=== PATIENT | female | born 1930 | race Caucasian/White ===

== ENCOUNTER → 2017-07-09 | Outpatient (CLI) | payer OTHER ==
[~2017-07-09] MED LIST: AUGMENTIN 875875 MG; BISACODYL SUPP10 MG RECTAL; DOXYCYCLINE 10100 M2 PO; GABAPENTIN 100100 MG PO; HYDROCODONE-AP1 EAC6 PO; LEVOTHYROXIN0.125 M1 PO; MEGA BIOTIN10000 MCG PO; SYNTHROID75 MCG PO; TOPROL XL25 MG PO; ULTRAM 50MG TAB50 MG PO; VASOTEC10 MG PO; VITAMIN D2000 UNIT PO; VOLTAREN GEL 1100 G2 TOP; ZOFRAN ODT4 MG PO; ZOFRAN4 MG PO
== END ==
LOC: M.RAD 12:45
DX: J84.10 Pulmonary fibrosis, unspecified (principal); M41.85 Other forms of scoliosis, thoracolumbar region; W19.XXXA Unspecified fall, initial encounter

== ENCOUNTER 2017-09-14 19:09 | Inpatient (IN) | payer OTHER ==
[~2017-09-14] VITALS: Ht 160 cm; Wt 64.4 kg
[~2017-09-14 19:09] MED LIST changes: -SYNTHROID75 MCG PO
[2017-09-14 19:15] VITALS: BP 172/72
[2017-09-14 20:03] LABS: ABSOLUTE BASOPHILS 0.1 thou/uL (0.0-0.2); ABSOLUTE EOSINOPHILS 0.5 thou/uL (0.0-0.7); ABSOLUTE LYMPHOCYTES 2.5 thou/uL (0.8-5.3); ABSOLUTE MONOCYTES 1.3 thou/uL (0.0-1.2); BASOPHILS 0.5 %; EOSINOPHILS 4.6 %; HEMOGLOBIN 12.2 gm/dL (12.0-15.0); LYMPHOCYTES 24.3 %; MCH 31.2 pg (26.0-34.0); MCHC 33.8 g/dL (28.0-37.0); MCV 92.4 fL (80.0-100.0); MONOCYTES 12.9 %; MPV 8.8 fl. (7.2-11.1); NUCLEATED RBCS 0 /100WBC; PLATELET COUNT* 203 thou/uL (150-400); POLYS 57.7 %; RBC 3.89 mil/uL (4.20-5.00); RDW-CV 13.5 % (10.5-14.5); WBC 10.4 thou/uL (4.0-11.0)
[2017-09-14 20:19] LABS: CALCIUM 9.4 mg/dL (8.5-10.1); CREATININE 1.7 mg/dL (0.6-1.3); POTASSIUM 5.3 mmol/L (3.5-5.1)
[2017-09-14 20:20] LABS: ALBUMIN 3.7 g/dL (3.4-5.0); TOTAL BILIRUBIN 0.2 mg/dL (<0.1-1.0); TOTAL PROTEIN 7.6 g/dL (6.4-8.2)
[2017-09-14 22:17] VITALS: BP 134/77
[2017-09-14 22:45] VITALS: BP 147/70
--- NOTE | 2017-09-15 06:24 | NUR ---
Admission at 2223. She has L forefinger cellulitis. She had a surgery on her L wrist when she was in her teens or 20's. She said that she has been getting blisters on that L hand and having numbness in both hands. The blisters came up and one got infected and has been hurting, L forefinger was red,swollen and warm. She had red streaks going up her right arm. She did recieve Vanco in E.D. and has since the redness up her arm has improved. She's up independently in room. She doesn't want to have any surgery. She said she wants second opinions. Dr [facility] ([facility])to be consulted because she wants a surgeon who has worked on hands. Resident Dr Barahona notified this am but will call answering service this am.
[2017-09-15 08:12] LABS: ABSOLUTE BASOPHILS 0.1 thou/uL (0.0-0.2); ABSOLUTE EOSINOPHILS 0.4 thou/uL (0.0-0.7); ABSOLUTE LYMPHOCYTES 2.4 thou/uL (0.8-5.3); ABSOLUTE MONOCYTES 0.8 thou/uL (0.0-1.2); ABSOLUTE NEUTROPHILS 3.4 thou/uL (1.6-8.1); BASOPHILS 1.2 %; EOSINOPHILS 5.3 %; HEMATOCRIT 36.3 % (37.0-47.0); HEMOGLOBIN 12.4 gm/dL (12.0-15.0); LYMPHOCYTES 34.3 %; MCH 31.2 pg (26.0-34.0); MCHC 34.2 g/dL (28.0-37.0); MCV 91.1 fL (80.0-100.0); MPV 8.8 fl. (7.2-11.1); NUCLEATED RBCS 0 /100WBC; PLATELET COUNT* 203 thou/uL (150-400); POLYS 48.2 %; RBC 3.98 mil/uL (4.20-5.00); RDW-CV 13.1 % (10.5-14.5); WBC 7.1 thou/uL (4.0-11.0)
[2017-09-15 08:24] LABS: CALCIUM 9.3 mg/dL (8.5-10.1); CREATININE 1.4 mg/dL (0.6-1.3); POTASSIUM 4.6 mmol/L (3.5-5.1)
[2017-09-15 08:50] VITALS: BP 120/78
[2017-09-15 09:52] VITALS: BP 120/78
--- NOTE | 2017-09-15 11:06 | NUR ---
CM ASSESSMENT: VISITED WITH PT IN ROOM. PT DENIES NEED FOR CM. DENIES NEED FOR DME. PT LIVES ALONE AND DRIVES. SHE GOES TO THE GYM A FEW DAYS A WEEK. DENIES NEED FOR HH
--- NOTE | 2017-09-15 13:30 | NUR ---
PATIENT LEFT AMA AT 1330. ALERT AND ORIENTED X4. UP AD RMOA IN ROOM. IV DC'D. PATIENT STATES THAT SHE IS WASTING HER TIME SITTING IN THE HOSPITAL WAITING FOR THE INFECTIOUS DISEASE DR. FOSTER MEDRANO. STATES SHE IS GOING TO GO TO HER PRIMARY CARE TO GET ANTIBITOTICS. RISKS HAVE BEEN EXPLAINED TO PATIENT AND PROVIDER HAS BEEN NOTIFIED. VSS ON ROOM AIR. HOURLY ROUNDS HAVE BEEN MAINTAINED THROUGHOUT SHIFT.
== END 2017-09-15 13:30 | disposition left against medical advice (07) | DRG 602 ==
LOC: M.ERS 19:09 → M.TBA-ER 20:30 → M.ORTHSURG 20:30
PROVIDERS: Emergency Medicine; ADMIT Internal Medicine
DX: L03.114 Cellulitis of left upper limb (principal); N17.0 Acute kidney failure with tubular necrosis; K21.9 Gastro-esophageal reflux disease without esophagitis; I10 Essential (primary) hypertension; E03.9 Hypothyroidism, unspecified; N18.3 Chronic kidney disease, stage 3 (moderate); Z53.21 Procedure and treatment not carried out due to patient leaving prior to being seen by health care provider; L53.9 Erythematous condition, unspecified; Z79.899 Other long term (current) drug therapy; Z90.49 Acquired absence of other specified parts of digestive tract; Z88.6 Allergy status to analgesic agent; Z88.8 Allergy status to other drugs, medicaments and biological substances

== ENCOUNTER 2017-09-23 12:26 | Inpatient (IN) | payer OTHER ==
[~2017-09-23] VITALS: Ht 162.6 cm; Wt 64.0 kg
[2017-09-23] VITALS (7 sets, daily range): BP systolic 130–187; BP diastolic 57–80
[2017-09-23] MEDS ORDERED: SYNTHROID75 MCG PO (12:40)
[2017-09-23 13:36] LABS: ABSOLUTE BASOPHILS 0.1 thou/uL (0.0-0.2); ABSOLUTE EOSINOPHILS 0.4 thou/uL (0.0-0.7); ABSOLUTE MONOCYTES 0.6 thou/uL (0.0-1.2); BASOPHILS 0.9 %; EOSINOPHILS 5.8 %; HEMATOCRIT 39.8 % (37.0-47.0); HEMOGLOBIN 13.6 gm/dL (12.0-15.0); LYMPHOCYTES 42.3 %; MCH 31.8 pg (26.0-34.0); MCHC 34.1 g/dL (28.0-37.0); MCV 93.4 fL (80.0-100.0); MONOCYTES 9.2 %; MPV 8.8 fl. (7.2-11.1); NUCLEATED RBCS 0 /100WBC; PLATELET COUNT* 256 thou/uL (150-400); POLYS 41.8 %; RBC 4.26 mil/uL (4.20-5.00); RDW-CV 13.3 % (10.5-14.5); WBC 7.1 thou/uL (4.0-11.0)
[2017-09-23 13:40] LABS: ANION GAP 11 mmol/L (7-16); BUN 42 mg/dL (7-18); CHLORIDE 104 mmol/L (98-107); CO2 20 mmol/L (21-32); CREATININE 2.6 mg/dL (0.6-1.3); GLUCOSE 111 mg/dL (70-99); SODIUM 135 mmol/L (136-145)
[2017-09-23 13:42] LABS: POTASSIUM 7.4 mmol/L (3.5-5.1)
[2017-09-23 13:53] LABS: ALBUMIN 4.2 g/dL (3.4-5.0); ALKALINE PHOSPHATASE 58 U/L (46-116); NT-PRO BRAIN NAT PEPTIDE 353 pg/mL (<300); SGOT 21 U/L (15-37); SGPT 20 U/L (30-65); TOTAL BILIRUBIN 0.3 mg/dL (<0.1-1.0); TOTAL PROTEIN 8.5 g/dL (6.4-8.2); TROPONIN-I LEVEL <0.06 ng/mL (<0.06)
--- NOTE | 2017-09-23 14:03 | EKG ---
[place] [address] ELECTROCARDIOGRAM REPORT Name: DELLA EVANS Room: [facility]#: [id number] Admission: 09/23/17 Attend Phys: Discharge: Date of : 34 Report #: [id number] THIS REPORT FOR: //name// [facility] ED Test Date: 2017-09-23 Test Time: 12:37:37 Pat Name: DELLA EVANS Department: Room: Gender: F Vehicle Monitor Technician: Brianne TABOR : 1930 Requested By: Leny Huntley Order Number: [id number] MD: Miguel Hagen Measurements Intervals [place] Rate: 64 P: 55 MA: 179 QRS: -22 QRSD: 152 T: 96 QT: 417 QTc: 431 Interpretive Statements Sinus rhythm Left bundle branch block No previous ECG available for comparison Electronically Signed On 09-23-2017 14:03:09 CDT by Miguel Hagen [email or web address] <ELECTRONICALLY SIGNED> By: Miguel Hagen MD, [facility] 09/23/17 1403 1237 1237 Miguel Hagen MD, FACC /EPI
[2017-09-23 15:51] LABS: URINE BILIRUBIN NEGATIVE (Negative); URINE BLOOD 1+ (Negative); URINE CLARITY CLEAR; URINE COLOR YELLOW; URINE GLUCOSE-RANDOM NEGATIVE (Negative); URINE KETONES NEGATIVE (Negative); URINE LEUKOCYTES-REFLEX NEGATIVE (Negative); URINE NITRITE-REFLEX NEGATIVE (Negative); URINE PROTEIN NEGATIVE (Negative); URINE SPECIFIC GRAVITY <= 1.005 (1.005-1.030); URINE UROBILINOGEN 0.2 E.U./dl (0.2-1.0)
[2017-09-23 15:59] LABS: BACTERIA-REFLEX None Seen /HPF (None Seen); CASTS None Seen /LPF (None Seen); CRYSTALS None Seen /LPF (None Seen); SQUAMOUS 0-3 Few /LPF (0-3); URINE RBC 0-2 Rare /HPF (0-2); URINE WBC-REFLEX None Seen /HPF (0-5)
--- NOTE | 2017-09-23 16:55 | NUR ---
PT ADMITTED TO ROOM ICU VIA CART. PT REMANS ON R/A.RENAL DR ON UNIT MADE AWARE OF CURRENT POTASSIUM LEVEL. INF INFUSING. PT HR 70'S. CARDILOGY NURSE ALSO ON UNIT.F/C PATENT FOR LT YELLOW URINE.FAMILY IN WAITING ROOM.
--- NOTE | 2017-09-23 17:00 | NUR ---
STAT POTASSIUM COLLECTED. PT HAS BEEN HAVING LOOSE STOOLS FROM EARLIER DOSE OF KAYEXALATE.ECHO CARDIOGRAM ORDERED.
--- NOTE | 2017-09-23 19:20 | NUR ---
PT POTASSIUM 6.4, DR PATEL CALLED ORDERS RECIEVED,PM NURSE MADE AWARE OF ORDERS.
--- NOTE | 2017-09-23 19:30 | NUR ---
SRI CHNAGES SINCE PRIOR NOTE.
[2017-09-24] VITALS (17 sets, daily range): BP systolic 108–147; BP diastolic 46–78
[2017-09-24 04:22] LABS: CALCIUM 9.9 mg/dL (8.5-10.1); CREATININE 2.3 mg/dL (0.6-1.3); POTASSIUM 4.8 mmol/L (3.5-5.1)
[2017-09-24 04:24] LABS: ABSOLUTE BASOPHILS 0.1 thou/uL (0.0-0.2); ABSOLUTE EOSINOPHILS 0.1 thou/uL (0.0-0.7); ABSOLUTE LYMPHOCYTES 2.1 thou/uL (0.8-5.3); ABSOLUTE MONOCYTES 0.9 thou/uL (0.0-1.2); ABSOLUTE NEUTROPHILS 7.5 thou/uL (1.6-8.1); BASOPHILS 0.7 %; EOSINOPHILS 1.2 %; HEMATOCRIT 39.7 % (37.0-47.0); HEMOGLOBIN 13.5 gm/dL (12.0-15.0); LYMPHOCYTES 19.9 %; MCH 31.2 pg (26.0-34.0); MCV 91.6 fL (80.0-100.0); MONOCYTES 8.1 %; MPV 8.6 fl. (7.2-11.1); NUCLEATED RBCS 0 /100WBC; PLATELET COUNT* 245 thou/uL (150-400); POLYS 70.1 %; RBC 4.34 mil/uL (4.20-5.00); WBC 10.6 thou/uL (4.0-11.0)
--- NOTE | 2017-09-24 07:29 | NUR ---
PATIENT PROGRESSING TOWARDS GOALS. K+ WNL 4.8. PT VOMITED 3X OVER NIGHT. INDIGESTION WORSENED ALL THROUGHOUT THE NIGHT. SPOKE WITH DR. KULKARNIVED ORDERS TO START SCOPOLAMINE PATCH AND INCREASE ZOFRAN TO Q4H. PT CURRENTLY IN BED HIGH FOWLERS POSITION STATES INDIGESTION HIS GONE DOWN. HAS NO NAUSEA. WILL START PT ON PROTONIX AND CONITNUE TO MONITOR CLOSELY. NO VOICED CONCERNS AT THIS TIME. CALL LIGHT WIHTIN REACH. BED TO LOWEST POSITION.
--- NOTE | 2017-09-24 08:38 | NUR ---
0730 ASSUMED CARE OF PATIENT. SEE DOCUMENTED ASSESSMENT. UP TO BSC FOR STOL. C/O NAUSEA. MARGUERITE HERE AND ORDERS NOTED
--- NOTE | 2017-09-24 08:39 | NUR ---
[address] E[address]P REPORTED TO DR CASAREZ. ORDERS NOTED.
--- NOTE | 2017-09-24 09:46 | 2DMMODE ---
[place] [address] 2 D/M-MODE ECHOCARDIOGRAM Name: HAILE EVANSAkira Valle Room: [facility] ADM IN [facility]#: [id number] Admission: 09/23/17 Attend Phys: Sushil Heller, Discharge: Date of : 32 Date of Service: 09/24/17 0946 Report #: [id number] THIS REPORT FOR: //name// APPROVED REPORT Study performed: 09/23/2017 16:56:08 EXAM: Comprehensive 2D, Doppler, and color-flow Echocardiogram Patient Location: In-Patient Room #: [facility] Status: routine BSA: 1.68 HR: 66 bpm BP: 167/77 mmHg Rhythm: NSR Other Information Study Quality: Good Indications Bradycardia 2D Dimensions LVEF(%): 47.16 (>50%) IVSd: 9.52 (7-11mm) LVOT Diam: 18.98 (18-24mm) LVDd: 41.54 mm PWd: 9.35 (7-11mm) Ascending Ao: 31.56 (22-36mm) LVDs: 31.84 (25-40mm) Aortic Root: 31.21 mm Dean's LVEF: 47.16 % Volumes Left Atrial Volume (Systole) LA ESV Index: 20.30 mL/m2 Aortic Valve AoV Peak Rylan.: 1.11 m/s AO Peak Gr.: 4.89 mmHg LVOT Max P.51 mmHg AO Mean Gr.: 2.33 mmHg LVOT Mean P.75 mmHg LVOT Max V: 0.94 m/s AO V2 VTI: 18.85 cm LVOT Mean V: 0.62 m/s ANDREA (VTI): 2.66 cm2 LVOT V1 VTI: 17.72 cm Mitral Valve E/A Ratio: 0.73 [place] [address] 2 D/M-MODE ECHOCARDIOGRAM Name: EVANSHAILE DeeAkira Valle Room: [address] IN .R.#: [id number] Admission: 09/23/17 Attend Phys: Sushil Heller, Discharge: Date of : 32 Date of Service: 09/24/17 0946 Report #: [id number] MV Decel. Time: 258.99 ms MV E Max Rylan.: 0.57 m/s MV PHT: 75.11 ms MVA (PHT): 2.93 cm2 TDI E/Lateral E': 4.75 E/Medial E': 8.14 Medial E' Rylan.: 0.07 m/s Lateral E' Rylan.: 0.12 m/s Pulmonary Valve PV Peak Rylan.: 1.01 m/s PV Peak Gr.: 4.08 mmHg Tricuspid Valve TR Peak Gr.: 24.06 mmHg RVSP: 29.00 mmHg Left Ventricle The left ventricle is normal size. Anteroseptal, lateral hypokinesis. There is normal left ventricular wall thickness. Left ventricular systolic function is normal. The left ventricular ejection fraction is within the normal range. LVEF is 40-45%. Grade I - abnormal relaxation pattern. Right Ventricle The right ventricle is normal size. The right ventricular systolic function is normal. Atria The left atrium size is normal. The right atrium size is normal. Aortic Valve The aortic valve is normal in structure. No aortic regurgitation is present. There is no aortic valvular stenosis. Mitral Valve The mitral valve is normal in structure. Moderate mitral regurgitation. No evidence of mitral valve stenosis. Tricuspid Valve The tricuspid valve is normal in structure. Mild tricuspid regurgitation. The RVSP is ___29____ mmHg. Pulmonic Valve The pulmonary valve is normal in structure. There is no pulmonic [place] [address] 2 D/M-MODE ECHOCARDIOGRAM Name: EVANS,DELLA Valle Room: [address] IN M.R.#: [id number] Admission: 09/23/17 Attend Phys: Sushil Heller, Discharge: Date of : 32 Date of Service: 09/24/17 0946 Report #: [id number] Great Vessels The aortic root is normal in size. IVC is normal in size and collapses with >50% inspiration Pericardium There is no pericardial effusion. <Conclusion> LVEF is 40-45%. Anteroseptal, lateral hypokinesis. Moderate mitral regurgitation. There is no aortic valvular stenosis. No aortic regurgitation is present. <ELECTRONICALLY SIGNED> By: Romain Espinosa MD, FACC 09/24/17945 5 5 Romain Espinosa MD, FACC /INF
--- NOTE | 2017-09-24 12:38 | EKG ---
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
--- NOTE | 2017-09-24 14:26 | NUR ---
DR ZHANG TO SEE PATIENT. ORDERS NOTED
--- NOTE | 2017-09-24 17:08 | NUR ---
PATIENT PROGRESSING TOWARDS GOALS. LESS NAUSEA AND STOOLS HAVE STOPPED. STILL HAS MINOR HEARTBURN. OFF OF BICARB DRIP. UP TO CHAIR FOR MEALS. FEBRILE THROUGH NOON BUT NOW NORMOTHERMIC. FAMILY HAS VISITED
[2017-09-24 22:06] LABS: IgG 1219 mg/dL (700-1600); IgM 75 mg/dL (26-217)
[2017-09-25] VITALS: BP 106/40
[2017-09-25 04:00] VITALS: BP 102/30
[2017-09-25 04:09] LABS: ALBUMIN 3.3 g/dL (3.4-5.0); CALCIUM 8.6 mg/dL (8.5-10.1); MAGNESIUM 1.7 mg/dL (1.8-2.4); PHOSPHORUS* 4.3 mg/dL (2.5-4.9); POTASSIUM 4.3 mmol/L (3.5-5.1)
[2017-09-25 08:03] VITALS: BP 102/30
--- NOTE | 2017-09-25 09:00 | NUR ---
GOALS: DISCHARGE TODAY. UP TO CHAIR FOR BREAKFAST. REMOVED MIX CATHETER.
[2017-09-25 09:06] LABS: IgA 282 mg/dL (64-422)
[2017-09-25 11:12] VITALS: BP 124/61
--- NOTE | 2017-09-25 11:30 | NUR ---
ATE 75% OF BREAKFAST. IMPROVED APPETITE.
[2017-09-25 12:35] VITALS: BP 128/68
--- NOTE | 2017-09-25 12:37 | NUR ---
SPOKE W/DR. ZHANG. HE WOULD LIKE TO SEE PT BEFORE SHE DISCHARGES HOME. PT SITTING UP EATING LUNCH. VITALS STABLE.
--- NOTE | 2017-09-25 13:25 | NUR ---
PT GIVEN D/CHARGE INSTRUCTIONS. VERBALIZED UNDERSTANDING. BOTH IV'S REMOVED. CANNULAS REMOVED IN THEIR ENTIRETY. ALL BELONGINGS SENT HOME W/PT. PT TAKEN OUTSIDE VIA W/CHAIR FOR D/CHARGE HOME VIA FAMILY CAR.
[2017-09-26 13:07] LABS: KAPPA FREE LIGHT CHAINS 42.6 mg/L (3.3-19.4); LAMBDA FREE LIGHT CHAINS 27.6 mg/L (5.7-26.3)
--- NOTE | 2017-09-28 13:47 | CON ---
[address] [address] CONSULTATION Name: HAILE EVANSAkira Valle Room: [address] IN M.R.#: [id number] Admission: 09/23/17 Attend Phys: Sushil Heller MD Discharge: 09/25/17 Date of : 32 Report #: [id number] THIS REPORT FOR: //name// CC: Sushil [place] DATE OF SERVICE: 09/23/2017 NEPHROLOGY CONSULTATION CONSULTING PHYSICIANS: Dr. Heller and Dr. Huntley. REASON FOR CONSULTATION: Hyperkalemia and acute kidney injury on chronic kidney disease, stage 3. CHIEF COMPLAINT: Low heartbeat. HISTORY OF PRESENT ILLNESS: This is a very pleasant 86-year-old female with past medical history of hypertension, WPW syndrome, thyroid disease, GERD, who came in because she noted that she was not feeling well. She was feeling dizzy and having nausea, and her pulse rate was low in 40s. Normally, her pulse rate also runs in 50s, but now, her pulse rate was 45 this morning and she was feeling bad and having nausea. The patient also had a few episodes of diarrhea yesterday, but it resolved today. The patient's p.o. intake has been good. The patient had left index finger infection and took 5 days of Bactrim, but stopped it 2 days ago because that did not make her feel good. The patient also takes Vasotec 20 mg b.i.d. and eats at least one banana a day. Her baseline creatinine is 1.4-1.7 and today's labs in the ER showed a creatinine of 2.6 and a potassium of 7.6. The patient's heart rate was also low. The patient was given calcium gluconate, insulin, D50 and Kayexalate as well as 1 liter of normal saline. Boss catheter was also inserted and the patient is having urine output. She has already made more than 500 mL of urine output. With medical management, her potassium has come down to 7.3 and the heart rate is better at 76 and she feels better. She denies any history of any kidney stones and does not take any NSAIDs. She does not have any urinary complaints. She is quite active and she works out about 3 times a week at the gym. REVIEW OF SYSTEMS: The patient was having nausea, low pulse rate, feeling dizzy, just feeling bad and now feeling a little better. Other review of systems done negative. ALLERGIES: CODEINE AND LANSOPRAZOLE. PAST MEDICAL HISTORY: Includes hypertension, hypothyroidism, WPW syndrome, neuropathy, [place] [address] CONSULTATION Name: DELLA EVANS Room: [address] IN M.R.#: [id number] Admission: 09/23/17 Attend Phys: Sushil Heller MD Discharge: 09/25/17 Date of : 32 Report #: [id number] PAST SURGICAL HISTORY: Includes appendectomy, right rotator cuff repair. FAMILY HISTORY: Not relevant to the current situation. SOCIAL HISTORY: She does not smoke, uses alcohol occasionally. No illicit drugs. HOME MEDICATIONS: They were reviewed, they include: 1. Enalapril or Vasotec 20 mg b.i.d. 2. Levothyroxine. 3. Metoprolol. 4. Gabapentin. 5. Biotin. 6. Cholecalciferol. PHYSICAL EXAMINATION: VITAL SIGNS: Blood pressure is 167/77, pulse ox is 98% on room air, temperature 36.2, pulse rate is 71, respiratory rate is 14. GENERAL: She is awake, alert and oriented x 3. HEAD, EYES, EARS, NOSE AND THROAT: Mucous members are slightly dry. NECK: No JVD. CHEST: Bilaterally clear to auscultation. No crackles or wheezing. CARDIOVASCULAR: S1, S2 normal. No murmurs. ABDOMEN: Soft, nontender, nondistended. Bowel sounds are present. EXTREMITIES: No lower extremity edema, symmetrical extremities. NEUROLOGICAL FUNCTION: Gross neurological function is intact. PSYCHIATRIC: Mood and affect seem to be normal. LABORATORY DATA: Last potassium was 7.3, repeat potassium was 7.6, creatinine was 2.6, bicarb was 20, sodium was 135. Hemoglobin was 13.6 and other labs were reviewed. IMAGING: There is no imaging to be reviewed. ASSESSMENT AND PLAN: 1. Acute hyperkalemia: Hyperkalemia is most likely because of Bactrim, Vasotec, high potassium diet, renal dysfunction, some degree of metabolic acidosis. The Bactrim and Vasotec have been stopped, the patient will be placed on a low potassium diet, we will give her some bicarbonate and IV fluids. Potassium is already coming down, the last one being 7.3 potassium is being checked and if it is not significantly better, then the patient is agreeable to temporary dialysis. We will change her IV fluids to D5 water with 2 mEq of sodium bicarbonate in it to run at 125 mL an hour. Strict I's and O's. Low potassium diet. 2. Acute renal failure on chronic kidney disease, stage 3[place] [address] CONSULTATION Name: DELLA EVANS Room: [address] IN [facility].#: [id number] Admission: 09/23/17 Attend Phys: Sushil Heller MD Discharge: 09/25/17 Date of : 32 Report #: [id number] is 1.4-1.7. The patient likely has chronic kidney disease, stage 3 because of hypertension. Currently, acute renal failure is because of Bactrim use and slight intravascular volume depletion. Bactrim has been stopped. IV fluids will be given. Renal ultrasound will be checked. Also, serum immunofixation studies will be checked. 3. Metabolic acidosis: This is likely because of renal dysfunction. We will give her fluids with some bicarbonate. 4. Bradycardia: This is likely because of hyperkalemia and potassium is getting better as well as her heart rate. 5. Hypertension: Blood pressure is running slightly towards the higher side. If it keeps running high, I can add nifedipine or calcium channel chase to help with her blood pressure. The patient is currently on IV fluids and she has also received one dose of IV Lasix and potassium is being rechecked right now. Thank you for this consultation, and I will continue to follow along with you. I have asked nursing to call me as soon as the potassium level comes back. <ELECTRONICALLY SIGNED> By: Kacie Cobb MD 09/28/17 1347 1611 1813Amichele Cobb MD /josué
== END 2017-09-25 13:25 | disposition home or self-care (01) | DRG 308 ==
LOC: M.ERS 12:26 → M.ICU 15:01 → M.TBA-ER 15:01 → M.ICU 15:17
PROVIDERS: Internal Medicine; Internal Medicine Nephrology; Personal Emergency Response Attendant; ADMIT Internal Medicine
PROC: B24BZZ4 Ultrasonography of Heart with Aorta, Transesophageal (ICD-10-PCS; principal; 2017-09-24)
DX: R00.1 Bradycardia, unspecified (principal); N17.0 Acute kidney failure with tubular necrosis; E87.2 Acidosis; I50.32 Chronic diastolic (congestive) heart failure; E87.5 Hyperkalemia; K21.9 Gastro-esophageal reflux disease without esophagitis; I25.10 Atherosclerotic heart disease of native coronary artery without angina pectoris; I12.9 Hypertensive chronic kidney disease with stage 1 through stage 4 chronic kidney disease, or unspecified chronic kidney disease; E03.9 Hypothyroidism, unspecified; N18.3 Chronic kidney disease, stage 3 (moderate); I45.6 Pre-excitation syndrome; E83.42 Hypomagnesemia; G62.9 Polyneuropathy, unspecified; T37.0X5A Adverse effect of sulfonamides, initial encounter; Y92.89 Other specified places as the place of occurrence of the external cause; Z90.49 Acquired absence of other specified parts of digestive tract; Z79.899 Other long term (current) drug therapy; Z88.5 Allergy status to narcotic agent; Z88.8 Allergy status to other drugs, medicaments and biological substances

== ENCOUNTER → 2018-01-18 | Outpatient (CLI) | payer OTHER ==
[~2018-01-18] MED LIST changes: +SYNTHROID75 MCG PO
--- NOTE | 2018-01-18 13:34 | 2DMMODE ---
[place] [address] 2 D/M-MODE ECHOCARDIOGRAM Name: DELLA EVANS Room: [facility]#: [id number] Admission: 01/18/18 Attend Phys: Geni Farias, Discharge: Date of : 32 Date of Service: 01/18/18 1334 Report #: [id number] THIS REPORT FOR: //name// APPROVED REPORT Study performed: 01/18/2018 12:54:27 EXAM: Limited 2D Echocardiogram, m- mode Patient Location: Out-Patient Status: routine BSA: 1.70 HR: 60 bpm BP: 167/77 mmHg Other Information Study Quality: Good Indications Cardiomyopathy WPW 2D Dimensions LVEF(%): 73.02 (>50%) IVSd: 12.49 (7-11mm) LVDd: 37.19 mm PWd: 9.28 (7-11mm) LVDs: 21.82 (25-40mm) Aortic Root: 30.18 mm Dean's LVEF: 73.02 % Left Ventricle The left ventricle is normal size. There is normal LV segmental wall motion. There is normal left ventricular wall thickness. The left ventricular systolic function is normal. The left ventricular ejection fraction is within the normal range. LVEF is 55-60%. Right Ventricle The right ventricle is normal size. The right ventricular systolic function is normal. Atria The left atrium size is normal. Right atrium is mildly dilated[place] [address] 2 D/M-MODE ECHOCARDIOGRAM Name: DELLA EVANS Room: [facility]#: [id number] Admission: 01/18/18 Attend Phys: Geni Farias, Discharge: Date of : 32 Date of Service: 01/18/18 1334 Report #: [id number] The aortic valve is normal in structure. Mitral Valve The mitral valve is normal in structure. Tricuspid Valve The tricuspid valve is normal in structure. Pulmonic Valve Pulmonic valve is not well visualized. Great Vessels The aortic root is normal in size. IVC is not well visualized. Pericardium There is no pericardial effusion. <Conclusion> LVEF is 55-60%. Right atrium is mildly dilated. <ELECTRONICALLY SIGNED> By: Miguel Hagen MD, FACC 01/18/18 1334 33 33 Miguel Hagen MD, FACC /INF
== END ==
LOC: M.CRD 12:38
DX: I42.9 Cardiomyopathy, unspecified (principal); I45.6 Pre-excitation syndrome; I25.10 Atherosclerotic heart disease of native coronary artery without angina pectoris; I10 Essential (primary) hypertension

== ENCOUNTER 2019-10-12 19:53 | Inpatient (IN) | payer OTHER ==
[~2019-10-12] VITALS: Ht 162.6 cm; Wt 72.6 kg
--- NOTE | ~2019-10-12 | PROC ---
[address] [address] PROCEDURE REPORT Name: DELLA EVANS Room: [address] IN M.R.#: [id number] Admission: 10/12/19 Attend Phys: Monico Pratt MD Discharge: 10/14/19 Date of : 32 Report #: [id number] THIS REPORT FOR: //name// cc: FAM - No family physician/PCP FAM - No family physician/PCP ~ THIS REPORT FOR: //name// For GI report, Please see the Provation report in Perceptive 7 content. By: [facility]8Medical Records Staff [facility] /TAMIKA
[2019-10-12 20:10] VITALS: BP 114/85
[2019-10-12] MEDS ORDERED: COLACE100 MG PO (20:16)
[2019-10-12] MEDS ORDERED: LORCET 5-325 M1 EACH PO (20:16)
[2019-10-12 20:17] LABS: ABSOLUTE BASOPHILS 0.1 thou/uL (0.0-0.2); ABSOLUTE EOSINOPHILS 0.5 thou/uL (0.0-0.7); ABSOLUTE LYMPHOCYTES 3.4 thou/uL (0.8-5.3); ABSOLUTE MONOCYTES 0.9 thou/uL (0.0-1.2); ABSOLUTE NEUTROPHILS 4.3 thou/uL (1.6-8.1); BASOPHILS 1.2 %; HEMATOCRIT 42.9 % (37.0-47.0); HEMOGLOBIN 14.8 gm/dL (12.0-15.0); LYMPHOCYTES 37.1 %; MCHC 34.4 g/dL (28.0-37.0); MCV 93.1 fL (80.0-100.0); MONOCYTES 10.2 %; MPV 10.1 fl. (7.2-11.1); NUCLEATED RBCS 0 /100WBC; PLATELET COUNT* 195 thou/uL (150-400); POLYS 46.5 %; RBC 4.61 mil/uL (4.20-5.00); RDW-CV 13.6 % (10.5-14.5); WBC 9.2 thou/uL (4.0-11.0)
[2019-10-12 20:31] LABS: CALCIUM 9.2 mg/dL (8.5-10.1); CREATININE 1.5 mg/dL (0.6-1.3)
[2019-10-12 20:35] LABS: ALBUMIN 4.3 g/dL (3.4-5.0); TOTAL BILIRUBIN 0.2 mg/dL (<0.1-1.0); TOTAL PROTEIN 8.6 g/dL (6.4-8.2)
[2019-10-12] MEDS ORDERED: ZOFRAN ODT4 MG DISSOLVE (21:23)
[2019-10-12 22:15] VITALS: BP 136/79; BP 167/79
[2019-10-13] MEDS ORDERED: LEVO-T100 MCG PO (00:30)
[2019-10-13 04:00] VITALS: BP 151/75
[2019-10-13 08:00] VITALS: BP 148/83
[2019-10-13] MEDS ORDERED: MIRALAX17 GM PO (08:16)
[2019-10-13] MEDS ORDERED: TYLENOL325 MG PO (08:16)
[2019-10-13] MEDS ORDERED: ZOFRAN ODT4 MG DISSOLVE (08:16)
[2019-10-13] MEDS ORDERED: COLACE100 MG PO (08:16)
--- NOTE | 2019-10-13 11:21 | EKG ---
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
[2019-10-13 12:13] VITALS: BP 144/66
[2019-10-13 15:06] LABS: HEMATOCRIT 35.8 % (37.0-47.0); MCH 31.7 pg (26.0-34.0); MCHC 33.9 g/dL (28.0-37.0); MCV 93.4 fL (80.0-100.0); MPV 9.8 fl. (7.2-11.1); RBC 3.83 mil/uL (4.20-5.00); RDW-CV 13.3 % (10.5-14.5); WBC 13.4 thou/uL (4.0-11.0)
[2019-10-13 15:08] LABS: HEMOGLOBIN 12.1 gm/dL (12.0-15.0)
[2019-10-13 16:34] VITALS: BP 158/63
[2019-10-13 20:00] VITALS: BP 121/49
[2019-10-14] VITALS: BP 121/53
[2019-10-14 04:00] VITALS: BP 117/47
[2019-10-14 05:48] LABS: ABSOLUTE EOSINOPHILS 0.2 thou/uL (0.0-0.7); ABSOLUTE LYMPHOCYTES 2.2 thou/uL (0.8-5.3); ABSOLUTE MONOCYTES 0.8 thou/uL (0.0-1.2); ABSOLUTE NEUTROPHILS 4.5 thou/uL (1.6-8.1); BASOPHILS 0.5 %; HEMATOCRIT 30.8 % (37.0-47.0); HEMOGLOBIN 10.8 gm/dL (12.0-15.0); LYMPHOCYTES 28.5 %; MCH 32.8 pg (26.0-34.0); MCHC 35.2 g/dL (28.0-37.0); MCV 93.2 fL (80.0-100.0); MONOCYTES 10.2 %; NUCLEATED RBCS 0 /100WBC; PLATELET COUNT* 126 thou/uL (150-400); POLYS 57.8 %; RDW-CV 13.9 % (10.5-14.5); WBC 7.8 thou/uL (4.0-11.0)
[2019-10-14 06:22] LABS: ALBUMIN 2.8 g/dL (3.4-5.0); CALCIUM 7.8 mg/dL (8.5-10.1); CREATININE 1.4 mg/dL (0.6-1.3); MAGNESIUM 1.6 mg/dL (1.8-2.4); PHOSPHORUS* 3.2 mg/dL (2.5-4.9); POTASSIUM 3.8 mmol/L (3.5-5.1); TOTAL BILIRUBIN 0.4 mg/dL (<0.1-1.0); TOTAL PROTEIN 5.7 g/dL (6.4-8.2)
[2019-10-14 11:28] VITALS: BP 147/61
--- NOTE | 2019-10-17 12:07 | PATH ---
[address] [address] PATHOLOGY RPT PROCEDURE Name: MICHELLE EVANS Room: [address] IN M.R.#: [id number] Admission: 10/12/19 Date of : 32 Discharge: 10/14/19 Report #: [id number] Path Case #: [id number] [facility] Accession Number: [id number] . 01 Material submitted: . stomach - GASTRIC BIOPSIES TO RULE OUT H PYLORI . 01 Clinical history: . R/O H. pylori . 02 Diagnosis: Gastric biopsy: - Mild nonspecific chronic gastritis, negative for Helicobacter pylori organisms and dysplasia. (SILVIA:cristiano; 10/16/2019) . . Special stain: H. pylori immuno QMS 10/16/2019 1123 Local . 02 Electronically signed: . Rodri Wilkinson MD, Pathologist NPI- [id number] . 01 Gross description: . The specimen is received in formalin, labeled "Tasia Evansn, gastric biopsy" and "biopsies" per requisition. Received are 3 fragments of pink-rangel tissue measuring between 0.1 x 0.1 cm and 0.5 x 0.2 cm which are entirely submitted in A1. (SDY; 10/15/2019) SYU/SYU 10/15/2019 1256 Local . 02 Pathologist provided ICD-10: K29.50 . 02 CPT . 847048, Y31373 Specimen Comment: A courtesy copy of this report has been sent to [phone] Specimen Comment: Report sent to Specimen Comment: A duplicate report has been generated due to demographic updates. Performed at: [address], [place] [id number] MD Jeremie Kerns MD Phone: [phone] Performed at: 02 [facility] [address] [place], [place] [id number] [address] [address] PATHOLOGY RPT PROCEDURE Name: MICHELLE EVANS Room: [address] DIS IN M.R.#: [id number] Admission: 10/12/19 Date of : 32 Discharge: 10/14/19 Report #: [id number] Path Case #: [id number] MD Rodri Wilkinson MD Phone: [phone]
--- NOTE | 2019-10-19 10:43 | CON ---
[address] [address] CONSULTATION Name: HAILE EVANSAkira Valle Room: [address] IN M.R.#: [id number] Admission: 10/12/19 Attend Phys: Monico Pratt MD Discharge: 10/14/19 Date of : 32 Report #: [id number] THIS REPORT FOR: //name// cc: TEODORO Mason No family physician/PCP TEODORO - No family physician/PCP ~ THIS REPORT FOR: //name// CC: TEODORO physician/PCP Monico Pratt DATE OF SERVICE: 10/13/2019 HISTORY OF PRESENT ILLNESS: A pleasant 89-year-old female with past medical history significant for hypothyroidism, hypertension, bradycardia, CKD, who is presenting with acute onset abdominal pain. The patient reports the pain is sudden in onset, located in the cox-vl-pdbjv abdomen, severe. The patient reports it is associated with nausea and vomiting. The patient reports vomiting blood and also seeing bright red blood per rectum. The patient reports the pain has somewhat subsided since yesterday, but is still present. She denies any significant nausea at this time. Her weight has been stable. The patient reports never having an EGD done in the past. She reports having colonoscopy done 3 or 4 years in the past. PAST MEDICAL HISTORY: Hypertension, hyperlipidemia, GERD, bradycardia, Tsanp-Iiufcxtxf-Uzhxq syndrome, stage 3 CKD, hyperkalemia, scoliosis, plantar fasciitis, diverticulitis. PAST SURGICAL HISTORY: The patient had history of appendectomy for acute appendicitis in 1998, hysterectomy in the remote past. She did present with bowel obstruction in 2004, which was treated conservatively. SOCIAL HISTORY: She denies smoking, alcohol or recreational drug use. FAMILY HISTORY: No family history of colon cancer or Snyder-related neoplasia. REVIEW OF SYSTEMS: Comprehensive 10-point review of systems is negative except for what was mentioned in the HPI. PHYSICAL EXAMINATION: GENERAL: The patient is alert, awake, oriented x 3. HEENT: Pupils are equal, round, reactive to light and accommodation. Mucous membranes are moist. There is no congestion. LUNGS: Clear to auscultation bilaterally. CARDIOVASCULAR: Rate and rhythm regular, S1, S2 present. ABDOMEN: Soft, mild tenderness to deep palpation in the periumbilical [place] [address] CONSULTATION Name: DELLA EVANS Room: [address]#: [id number] Admission: 10/12/19 Attend Phys: Monico Pratt MD Discharge: 10/14/19 Date of : 32 Report #: [id number] EXTREMITIES: Warm, well perfused. There is no edema. SKIN: Warm and dry. LABORATORY DATA: Hemoglobin 14.8, hematocrit 42.9, platelet count 195, WBC count is 9.2. Sodium 141, potassium 4.0, chloride 103, bicarb 29, BUN 38, creatinine 1.5. Total bilirubin 0.2, AST 26, ALT 25, alk phos 69, lipase 116. IMAGING: Abdomen and pelvis CT without IV contrast demonstrates small bowel dilation with partial small bowel obstruction. ASSESSMENT AND PLAN: Pleasant 89-year-old female with history outlined above, presents with hematemesis, possible partial small bowel obstruction. We will proceed with EGD to rule out mucosal disease, make further recommendations based on the results of EGD. <ELECTRONICALLY SIGNED> By: Clemente Kline MD 10/19/19 1043 1248 1335Clemente Kline MD /nt
== END 2019-10-14 13:54 | disposition left against medical advice (07) | DRG 389 ==
LOC: M.ERS 19:53 → M.TBA-ER 21:30 → M.2W 21:30 → M.TBA-ER 21:32 → M.2W 22:27
PROVIDERS: Emergency Medicine Emergency Medical Services; Internal Medicine Gastroenterology; Surgery; ADMIT Internal Medicine
PROC: 0W3P8ZZ Control Bleeding in Gastrointestinal Tract, Via Natural or Artificial Opening Endoscopic (ICD-10-PCS; principal; 2019-10-13)
PROC: 0DB78ZX Excision of Stomach, Pylorus, Via Natural or Artificial Opening Endoscopic, Diagnostic (ICD-10-PCS; principal; 2019-10-13)
DX: K56.600 Partial intestinal obstruction, unspecified as to cause (principal); K22.10 Ulcer of esophagus without bleeding; K21.0 Gastro-esophageal reflux disease with esophagitis; I12.9 Hypertensive chronic kidney disease with stage 1 through stage 4 chronic kidney disease, or unspecified chronic kidney disease; N18.3 Chronic kidney disease, stage 3 (moderate); M41.9 Scoliosis, unspecified; K44.9 Diaphragmatic hernia without obstruction or gangrene; I45.6 Pre-excitation syndrome; E78.5 Hyperlipidemia, unspecified; E03.9 Hypothyroidism, unspecified; G89.29 Other chronic pain; M54.9 Dorsalgia, unspecified; M19.90 Unspecified osteoarthritis, unspecified site; G62.9 Polyneuropathy, unspecified; Z90.49 Acquired absence of other specified parts of digestive tract; Z79.899 Other long term (current) drug therapy; Z88.1 Allergy status to other antibiotic agents; Z88.5 Allergy status to narcotic agent; Z88.2 Allergy status to sulfonamides; Z88.8 Allergy status to other drugs, medicaments and biological substances; Z90.710 Acquired absence of both cervix and uterus; K57.90 Diverticulosis of intestine, part unspecified, without perforation or abscess without bleeding; K25.9 Gastric ulcer, unspecified as acute or chronic, without hemorrhage or perforation; K26.9 Duodenal ulcer, unspecified as acute or chronic, without hemorrhage or perforation; Z53.29 Procedure and treatment not carried out because of patient's decision for other reasons

== ENCOUNTER → 2020-01-01 | Outpatient (CLI) | payer OTHER ==
[~2020-01-01] MED LIST changes: +BIOTIN5000 MC1 PO; +COLACE100 MG PO; +HYDROCODON-ACE1 EAC8 PO; +LEVO-T100 MCG PO; +LEVOTHYROXINE PO; +LORCET 5-325 M1 EACH PO; +MIRALAX17 GM PO; +TUMS200 MG PO; +TYLENOL325 MG PO; +ZOFRAN ODT4 MG DISSOLVE
--- NOTE | 2020-01-10 16:29 | PAINCON ---
[address] [address] PAIN MANAGEMENT CONSULTATION Name: DELLA EVANS Room: [facility].#: [id number] Admission: 01/01/20 Attend Phys: Tirso Ashley MD Discharge: Date of : 34 Report #: [id number] THIS REPORT FOR: //name// cc: [facility] - [facility] family physician/PCP ~ THIS REPORT FOR: //name// CC: [facility] physician/PCP Courtney Ashley DATE OF SERVICE: 01/01/2020 CHIEF COMPLAINT: Low back pain. HISTORY OF PRESENT ILLNESS: The patient is an 89-year-old female who has come to the pain clinic for evaluation of chronic pain. She notes that the pain is quite problematic when she is standing and walking. She describes it as a continuous, sometimes sharp pain. Pain is in the back, but sometimes radiates down into her leg on the right side. She notes that activities such as walking, standing are problematic. Use of medication is helpful. Rest is beneficial. She has used hydrocodone to help control the pain and discomfort. Denies any new bowel or bladder dysfunction. Denies any trauma. She has not had back surgery. She states she has not had x-rays for a number of years. She had seen a surgeon in the past who stated he could place rods in her back. She finds that the pain makes it difficult for her to do work around her house, work in her yard and other activities of daily living. The patient had physical therapy years ago. She had chiropractic treatment a long time ago. ALLERGIES: NONSTEROIDAL ANTI-INFLAMMATORY MEDICATIONS, PREVACID, ZANTAC, AMOXICILLIN, CODEINE, SULFA, DOXYCYCLINE, LASIX, CELEBREX. CURRENT MEDICATIONS: Biotin 5000 mcg 3 times daily, stool softener, melatonin 3 mg, acyclovir 800 mg p.r.n. herpetic marsha, pantoprazole, red yeast rice, levothyroxine 112 mcg one-half tablet daily, the other one was metoprolol 25 mg, hydrocodone 7.5 mg 1 p.o. t.i.d. PAST MEDICAL HISTORY: Hypothyroidism, hypertension, nerve pain, scoliosis, kidney disease, stage 3; chronic pain, on chronic narcotic therapy; GERD, Qlvne-Qgwxmhtcl-Zarcw, cardiomyopathy, coronary artery disease. PAST SURGICAL HISTORY: Left shoulder surgery, appendectomy, left arm surgery, hysterectomy, bladder repair. 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 [address] PAIN MANAGEMENT CONSULTATION Name: DELLA EVANS Room: [facility]#: [id number] Admission: 01/01/20 Attend Phys: Tirso Ashley MD Discharge: Date of : 34 Report #: [id number] REVIEW OF SYSTEMS: Recent weight change, fatigue, weakness, chronic sinus problems, heart trouble, palpitations, swelling in feet and hands, shortness of breath, bowel movements, thyroid disease, hot and cold intolerance, joint pain, joint stiffness, weakness of muscles, muscle pain, cramps, back pain, difficulty walking, varicose veins, numbness and tingling sensation, memory loss, confusion, depression, bleeding and bruising tendencies. LABORATORY DATA: No new laboratory values are available at the time of our interview. PAIN CLINIC ASSESSMENT AND PQRS: 1. The patient complains of some pain in the low back and has a history per her report of ____ scoliosis. The patient is not being treated for rheumatoid arthritis. 2. Height: 5 feet 3 inches, weight 145 pounds, BMI is 26.4. 3. Vital Signs: Blood pressure 145/79, heart rate 58, respiratory rate 16, room air saturation 98%, temperature 98.7. 4. Pain intensity: 7/10. 5. Fall history: The patient has not fallen in the last 3 months. 6. Blood thinner: The patient is not on a blood thinning medication. 7. Opioid therapy: The patient received medication from her primary. 8. Risk assessment tool: Low for opioid use. 9. Functional assessment tool: Reviewed. 10. Recreational drug use: The patient denies. 11. Tobacco: The patient does not smoke. 12. Alcohol: The patient denies frequent use of alcoholic beverages. PHYSICAL EXAMINATION: GENERAL: The patient is a well-developed, well-nourished white female. Appears her stated age. She is alert and oriented x 3. Her affect is appropriate. Speech is fluent. HEENT: Normocephalic, atraumatic. Extraocular eye muscles intact. Sclerae nonicteric. Mucous membranes are moist. The patient is wearing a mask. HEART: Regular rate. ABDOMEN: Nontender. MUSCULOSKELETAL: The patient's gait is normal. She complains of pain and discomfort with prolonged standing with pain in lower portion of her back, which builds up and radiates down into her right leg. IMPRESSION: Findings clinically are consistent with spinal stenosis. RECOMMENDATIONS: At this juncture, we have discussed options. We would recommend the patient continue with her pain medications as they appear to be helpful. The possibility of an epidural steroid injection is an option. She, at this juncture, states she simply wanted to know what the options were. I am not sure that we have a really good option. Given her age, [place] [address] PAIN MANAGEMENT CONSULTATION Name: DELLA EVANS Room: [facility].#: [id number] Admission: 01/01/20 Attend Phys: Tirso Ashley MD Discharge: Date of : 34 Report #: [id number] surgical candidate. Again, the possibility of an epidural steroid injection to note its efficacy would be reasonable. At this juncture, she will follow up in the pain clinic as needed. We would like to thank you for letting us participate in her care. Possibility of using other medications to help quell her pain such as gabapentin, Lyrica are also options. <ELECTRONICALLY SIGNED> By: Tirso Ashley MD 01/10/20 1629 [id number]. Calderon Ashley MD /nt
== END ==
LOC: M.PC 04:46
PROVIDERS: ATTEND Anesthesiology Pain Medicine
DX: M54.5 Low back pain (principal); Z88.8 Allergy status to other drugs, medicaments and biological substances; Z79.899 Other long term (current) drug therapy

== ENCOUNTER → 2020-12-03 | Outpatient (CLI) | payer OTHER ==
--- NOTE | 2020-12-03 16:20 | 2DMMODE ---
[place] [address] 2 D/M-MODE ECHOCARDIOGRAM Name: DELLA EVANS Room: [facility]#: [id number] Admission: 12/03/20 Attend Phys: Geni Farias, Discharge: Date of : 34 Date of Service: 12/03/20 1620 Report #: [id number] THIS REPORT FOR: cc: KARRI RODRIGUEZ MD, HEATHER L. MD Blick, David R. MD [facility] ~ APPROVED REPORT Study performed: 12/03/2020 14:03:24 EXAM: Comprehensive 2D, Doppler, and color-flow Echocardiogram Patient Location: Out-Patient BSA: 1.72 HR: 62 bpm Other Information Study Quality: Good Indications Dyspnea 2D Dimensions IVSd: 8.74 (7-11mm) LVOT Diam: 19.44 (18-24mm) LVDd: 42.50 mm PWd: 8.47 (7-11mm) Ascending Ao: 31.18 (22-36mm) LVDs: 27.39 (25-40mm) Aortic Root: 27.71 mm Volumes Left Atrial Volume (Systole) LA ESV Index: 19.80 mL/m2 Aortic Valve AoV Peak Rylan.: 1.05 m/s AO Peak Gr.: 4.42 mmHg LVOT Max P.91 mmHg AO Mean Gr.: 2.52 mmHg LVOT Mean P.36 mmHg LVOT Max V: 0.85 m/s AO V2 VTI: 22.44 cm LVOT Mean V: 0.54 m/s ANDREA (VTI): 2.44 cm2 LVOT V1 VTI: 18.45 cm AI Navajo: 1.76 m/s2 AI PHT: 563.87 [place] [address] 2 D/M-MODE ECHOCARDIOGRAM Name: DELLA EVANS Room: [facility]#: [id number] Admission: 12/03/20 Attend Phys: Geni Farias, Discharge: Date of : 34 Date of Service: 12/03/20 1620 Report #: [id number] Mitral Valve E/A Ratio: 1.09 MV Decel. Time: 234.13 ms MV E Max Rylan.: 0.77 m/s MV PHT: 67.90 ms MVA (PHT): 3.24 cm2 TDI E/Lateral E': 7.00 E/Medial E': 6.42 Medial E' Rylan.: 0.12 m/s Lateral E' Rylan.: 0.11 m/s Pulmonary Valve PV Peak Rylan.: 0.88 m/s PV Peak Gr.: 3.12 mmHg Tricuspid Valve RAP Estimate: 5.00 mmHg TR Peak Gr.: 29.36 mmHg RVSP: 34.36 mmHg PA Pressure: 34.36 mmHg Left Ventricle The left ventricle is normal size. There is normal LV segmental wall motion. There is normal left ventricular wall thickness. Left ventricular systolic function is normal. The left ventricular ejection fraction is within the normal range. LVEF is 55-60%. The left ventricular diastolic function is normal. Right Ventricle Right ventricle is mildly dilated. The right ventricular systolic function is normal. Atria The left atrium size is normal. Right atrium is mildly dilated. Aortic Valve The aortic valve is normal in structure. Mild aortic regurgitation. There is no aortic valvular stenosis. Mitral Valve The mitral valve is normal in structure. Mild mitral regurgitation. No evidence of mitral valve stenosis. Tricuspid Valve The tricuspid valve is normal in structure. Moderate tricuspid regurgitation. estimated pa pressure 40 [place] [address] 2 D/M-MODE ECHOCARDIOGRAM Name: DELLA EVANS Room: [facility]#: [id number] Admission: 12/03/20 Attend Phys: Geni Farias, Discharge: Date of : 34 Date of Service: 12/03/20 1620 Report #: [id number] Pulmonic Valve The pulmonary valve is normal in structure. Mild pulmonic regurgitation. Great Vessels The aortic root is normal in size. IVC is normal in size and collapses >50% with inspiration. Pericardium There is no pericardial effusion. <Conclusion> LVEF is 55-60%. Right ventricle is mildly dilated. Mild aortic regurgitation. Mild mitral regurgitation. Moderate tricuspid regurgitation. estimated pa pressure 40 mm Hg <ELECTRONICALLY SIGNED> By: Miguel Hagen MD, FACC 12/03/20 1620 1620 1620 Miguel Hagen MD, FACC /INF
== END ==
LOC: M.CRD 14:00
PROVIDERS: ATTEND Nurse Practitioner
DX: I08.8 Other rheumatic multiple valve diseases (principal); I45.6 Pre-excitation syndrome; I44.7 Left bundle-branch block, unspecified; R06.02 Shortness of breath

== ENCOUNTER 2021-01-16 00:28 | Emergency (ER) | payer OTHER ==
[~2021-01-16] VITALS: Ht 162.6 cm; Wt 66.7 kg
[2021-01-16 00:37] VITALS: BP 191/54
[2021-01-16 01:30] LABS: ABSOLUTE BASOPHILS 0.1 thou/uL (0.0-0.2); ABSOLUTE EOSINOPHILS 0.5 thou/uL (0.0-0.7); ABSOLUTE MONOCYTES 1.1 thou/uL (0.0-1.2); ABSOLUTE NEUTROPHILS 3.7 thou/uL (1.6-8.1); BASOPHILS 0.7 %; EOSINOPHILS 4.4 %; HEMATOCRIT 40.5 % (37.0-47.0); LYMPHOCYTES 48.5 %; MCH 31.9 pg (26.0-34.0); MCHC 34.7 g/dL (28.0-37.0); MCV 92.1 fL (80.0-100.0); MONOCYTES 10.5 %; MPV 9.3 fl. (7.2-11.1); NUCLEATED RBCS 0 /100WBC; PLATELET COUNT* 221 thou/uL (150-400); POLYS 35.9 %; WBC 10.3 thou/uL (4.0-11.0)
[2021-01-16 01:39] LABS: CALCIUM 9.4 mg/dL (8.5-10.1); CREATININE 1.3 mg/dL (0.6-1.3); POTASSIUM 4.1 mmol/L (3.5-5.1)
[2021-01-16 01:43] LABS: TOTAL BILIRUBIN 0.2 mg/dL (<0.1-1.0); TOTAL PROTEIN 8.2 g/dL (6.4-8.2)
--- NOTE | 2021-01-16 02:00 | NUR ---
INFORMED BY XRAY MECHANICAL MAINTENANCE FOREMAN THAT PT HAS REFUSED HER CHEST XRAY. WHEN ASKED, PT RESPONDED WITH, "I JUST HAD ALL KINDS OF TESTS DONE BY DR WYATT, AND I DON'T WANT ANOTHER XRAY. I JUST DON'T NEED IT." WHEN INFORMED THAT DR HANKINS MAY BE IN THE MAKE UP ARRANGER HER ON HER DECISION, PT RESPONDED, "SHE CAN MAKE UP ARRANGER ME ALL SHE WANTS, I'M NOT HAVING ANOTHER CHEST XRAY."
[2021-01-16 02:27] VITALS: BP 148/57
[2021-01-16 02:31] VITALS: BP 148/57
--- NOTE | 2021-01-16 14:23 | EKG ---
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: [place] : 1930 Requested By: Leny Huntley Order Number: [id number] MD: Duncan Bailey Measurements Intervals [place] Rate: 69 P: 26 VT: 168 QRS: -13 QRSD: 149 T: 123 QT: 413 QTc: 443 Interpretive Statements Sinus rhythm Left bundle branch block Compared to ECG 10/12/2019 20:15:06 No significant changes Electronically Signed On 01-16-2021 14:23:14 CDT by Duncan Bailey [email or web address] <ELECTRONICALLY SIGNED> By: Duncan Bailey MD, [facility] 01/16/21 1423 0033 0033 Duncan Bailey MD, [facility] /EPI
--- NOTE | 2021-01-16 14:24 | EKG ---
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: : 1930 Requested By: Leny Huntley Order Number: [id number] MD: Duncan Bailey Measurements Intervals [place] Rate: 77 P: -68 TN: 200 QRS: -9 QRSD: 158 T: 69 QT: 440 QTc: 499 Interpretive Statements Sinus rhythm at a bradycardic rate Multiple premature complexes, vent & supraven Left bundle branch block Baseline wander in lead(s) II,III,aVF Compared to ECG 01/16/2021 00:33:36 Heart rate has decreased and ectopy is noted Electronically Signed On 01-16-2021 14:24:11 CDT by Duncan Bailey [email or web address] <ELECTRONICALLY SIGNED> By: Duncan Bailey MD, [facility] 01/16/21 1424 2 2 Duncan Bailey MD, [facility] /EPI
--- NOTE | 2021-01-16 14:24 | EKG ---
[place] [address] ELECTROCARDIOGRAM REPORT Name: DELLA EVANS Room: [facility]#: [id number] Admission: 01/16/21 Attend Phys: Discharge: Date of : 34 Date of Service: 01/16/21 0134 Report #: [id number] THIS REPORT FOR: //name// [facility] ED Test Date: 2021-01-16 Test Time: 01:34:49 Pat Name: DELLA EVANS Department: Room: Gender: F Rn Chronic: : 1930 Requested By: Leny Huntley Order Number: [id number] MD: Duncan Bailey Measurements Intervals [place] Rate: 56 P: 23 [place]: 188 QRS: -10 QRSD: 151 T: 68 QT: 455 QTc: 440 Interpretive Statements Sinus rhythm Supraventricular bigeminy Left bundle branch block Compared to ECG 01/16/2021 01:33:49 Atrial premature complex(es) now present Electronically Signed On 01-16-2021 14:24:35 CDT by Duncan Bailey [email or web address] <ELECTRONICALLY SIGNED> By: Duncan Bailey MD, FACC 01/16/21 1424 0134 0134 Duncan Bailey MD, [facility] /EPI
== END 2021-01-16 02:31 | disposition home or self-care (01) ==
LOC: M.ERS 00:28 → M.TBA-ER 01:48 → M.ERS 01:48
PROVIDERS: Personal Emergency Response Attendant
DX: R00.8 Other abnormalities of heart beat (principal); Z20.822 Contact with and (suspected) exposure to COVID-19; R00.1 Bradycardia, unspecified; R07.89 Other chest pain; K21.9 Gastro-esophageal reflux disease without esophagitis; I10 Essential (primary) hypertension; Z90.49 Acquired absence of other specified parts of digestive tract; Z88.2 Allergy status to sulfonamides; Z88.1 Allergy status to other antibiotic agents; Z88.5 Allergy status to narcotic agent; Z88.8 Allergy status to other drugs, medicaments and biological substances; Z79.899 Other long term (current) drug therapy